=== PATIENT | male | born 1970 | race Caucasian/White ===

== ENCOUNTER → 2016-07-29 | Outpatient (CLI) | payer BC ==
[2016-07-29 19:09] LABS: Non-African American GFR(MDRD) >60 (>60 ml/min/1.73 sqM)
--- NOTE | 2016-07-29 20:05 | MR ---
EXAMINATION TYPE: MR cervical spine wo/w con DATE OF EXAM: 07/29/2016 7:55 PM COMPARISON: NONE HISTORY: Weakness in arms, neck pain TECHNIQUE: Multiplanar, multisequence images of the cervical spine were acquired utilizing 20 mL intravenous Mul tiHance gadolinium contrast. Diffusion weighted imaging was performed. C2-C3: No evidence for degenerative disc disease. No disc bulge/herniation or protrusion. No Canal stenosis. [place] are patent bilaterally. C3-C4: No evidence for degenerative disc disease. No disc bulge/herniation or protrusion. No Canal stenosis. [place] are patent bilaterally. C4-C5: No evidence for degenerative disc disease. No disc bulge/herniation or protrusion. No Canal stenosis. [place] are patent bilaterally. C5-C6: No evidence for degenerative disc disease. No disc bulge/herniation or protrusion. No Canal stenosis. [place] are patent bilaterally. C6-C7: No evidence for degenerative disc disease. No disc bulge/herniation or protrusion. No Canal stenosis. [place] are patent bilaterally. C7-T1: No evidence for degenerative disc disease. No disc bulge/herniation or protrusion. No Canal stenosis. [place] are patent bilaterally. Cervical segments are intact. There is normal alignment. Cervical spinal cord is of normal signal. Craniovertebral junction relationships are within normal limits. No abnormal enhancement following contrast administration. Cervical vertebral bodies show preserved marrow signal. IMPRESSION: Normal cervical spine MRI with and without contrast
== END | disposition home or self-care (01) ==
LOC: RADMRIMAIN 18:27
PROVIDERS: ATTEND Psychiatry & Neurology Neurology
DX: G37.9 Demyelinating disease of central nervous system, unspecified (principal); R53.1 Weakness
CPT/HCPCS: 82565; 72156; A9577

== ENCOUNTER → 2016-09-08 | Outpatient (CLI) | payer BC ==
--- NOTE | 2016-09-08 23:32 | MR ---
EXAMINATION TYPE: MR brain wo/w con DATE OF EXAM: 09/08/2016 COMPARISON: NONE HISTORY: MS protocol, Ayaz arm & leg weakness, numbness, hx sarcoidosis TECHNIQUE: Multiplanar, multisequence images of the brain and brainstem is performed without and with IV contras t, utilizing 20 mL intravenous MultiHance . FINDINGS: Ventricles have normal size. There is no mass effect nor midline shift. There is no sign of intracran ial hemorrhage. [place] and white matter structures are fairly normal signal pattern. There is no eviden ce of cerebral edema. The brainstem is intact. Corpus callosum appears normal. Sella turcica is callum l. There is no pathologic enhancement. There is normal appearance of the anterior middle and posterio r cerebral arteries. IMPRESSION: Normal MR scan of the brain. No evidence of demyelinating disease.
== END ==
LOC: RADMRIMAIN 18:35
PROVIDERS: ATTEND Psychiatry & Neurology Neurology
DX: G35 Multiple sclerosis (principal)
CPT/HCPCS: 70553; A9577